=== PATIENT | female | born 1960 | race Caucasian/White ===

== ENCOUNTER 2016-12-14 18:23 | Emergency (ER) | payer OTHER ==
[~2016-12-14] VITALS: Ht 165.1 cm; Wt 65.8 kg
[~2016-12-14 18:23] MED LIST: ASPI1TAB83 PO; ATR25 PO; BENZ-88 PO; CLON0.5T3 PO; DLN100 PO; FOLI1TAB7 PO; METO-452 PO; PRIM250T9 PO; PRT/20 PO; RISP0.5T4 PO; SYMIN160 INH; TIOTCAP INH
[2016-12-14 18:27] VITALS: TEMP 36.8; Ht 165.1 cm; Wt 65.8 kg
[2016-12-14] MEDS ORDERED: RANITIDINE HCL 150 MG TAB PO STA (19:37)
[2016-12-14] MEDS ORDERED: PSEUDOEPHEDRINE HCL 30 MG TAB PO STA (19:37)
[2016-12-14] MEDS ORDERED: FLUT1INH INH (19:42)
[2016-12-14] MEDS ORDERED: SPHSL5 SL (19:42)
[2016-12-14] MEDS ORDERED: SPRIN/30 INH (19:42)
[2016-12-14] MEDS ORDERED: PSEU30TA20 PO (19:49)
[2016-12-14] MEDS ORDERED: ZNTT/150 PO (19:49)
[2016-12-14 19:54] VITALS: BP 125/70; PULSE 68; O2SAT 93
--- NOTE | 2016-12-14 21:07 | EMERGENCY ROOM VISIT NOTE ---
History Report prepared by Vy: David Sandoval Under the Supervision of: Dr. Thee Comer M.D. First contact with patient: 19:25 Chief Complaint: ILLNESS Stated Complaint: 1 MONTH ILLNESS,SORE THROAT,LEG PAINS,EAR ACHE History of Present Illness The patient is a 56 year old female who presents to the Emergency Room with complaints of an intermittent sore throat and ear ache starting a month ago. She reports her discomfort as an 8/10 in severity. The patient states that she went to the doctors and was given antibiotics, but admits that she finished them. The patient reports that her family doctor also scheduled her an appointment with an ENT doctor in December. She states that she has been experiencing a lump on her throat and burning abdominal pain. The patient states that she has also been experiencing bilateral leg pain starting yesterday , but admits her left leg only hurts today. She admits that she has had a neck ultrasound done but was not given the results and a Lyme's disease test that showed a negative result. The patient states she has a history of epilepsy, which she takes Dilantin for, and COPD. She reports that she also has a history of acid reflux which she takes Protonix for. The patient states that she had an x-ray done a couple of weeks ago in [place], which showed normal results of her lungs. The patient denies her coughing being different from baseline. Source of History: patient Onset: a month ago Position: ear, throat Symptom Intensity: 8/10 Timing: intermittent Associated Symptoms: + abdominal pain, No cough Review of Systems See HPI for pertinent positives & negatives. A total of 10 systems reviewed and were otherwise negative. Past Medical & Surgical Medical Problems: (1) COPD (chronic obstructive pulmonary disease) (2) Diverticulosis (3) Epilepsy (4) GERD (gastroesophageal reflux disease) Family History Cancer Diabetes mellitus Social History Smoking Status: Current Every Day Smoker Current/Historical Medications Scheduled Asenapine Maleate (Saphris), 5 MG SL QAM Aspirin (Aspirin), 1 TAB PO DAILY Fluticasone Furoate-Vilanterol (Breo Ellipta), 1 PUFF INH QAM Folic Acid (Folvite), 1 TAB PO DAILY Metoprolol Succinate (Toprol Xl), 1 TAB PO DAILY Pantoprazole (Protonix), 20 MG PO DAILY Phenytoin Sodium (Dilantin), 2 CAP PO QAM Phenytoin Sodium (Dilantin), 3 CAP PO HS Primidone (Mysoline), 250 MG PO BID Pseudoephedrine (Sudafed), 30-60 MG PO Q6 Ranitidine (Zantac), 150 MG PO BID Tiotropium [place] (Spiriva Handihaler), 1 CAP INH DAILY Scheduled PRN Clonazepam (Klonopin), 0.5 MG PO DAILY PRN for Anxiety Allergies Coded Allergies: No Known Allergies (Unverified , 12/14/16) Physical Exam Vital Signs Date Time Temp Pulse Resp B/P (MAP) Pulse Ox O2 Delivery O2 Flow Rate FiO2 12/14/16 19:54 68 16 125/70 93 Room Air 12/14/16 18:27 36.8 73 18 115/80 93 Room Air Physical Exam GENERAL: Patient is in no acute distress. HEENT: No throat erythema or exudate. No uvular edema. No acute trauma, normocephalic atraumatic, mucous membranes moist, no nasal congestion, no scleral icterus. Right tympanic membrane normal but left not visible due to hard wax. NECK: No stridor, no adenopathy, no meningismus, trachea is midline. LUNGS: Clear to auscultation bilaterally, no wheeze, no rhonchi, breath sounds equal. HEART: Without murmurs gallops or rubs, regular rate and rhythm. ABDOMEN: Soft, nontender, bowel sounds positive, no hernias, no peritonitis. EXTREMITIES: No cellulitis.No cyanosis or edema, full range of motion of all the joints without pain or difficulty, no signs for acute trauma. NEUROLOGIC: Oriented x 3, no acute motor or sensory deficits, no focal weakness. SKIN: No rash, no jaundice, no diaphoresis. Medical Decision & Procedures Medications Administered Medications (Trade) Dose Ordered Sig/Chris Route Start Time Stop Time Status Last Admin Dose Admin Pseudoephedrine HCl (Sudafed Tab) 60 mg NOW STAT PO 12/14/16 19:37 12/14/16 19:40 DC 12/14/16 19:56 60 MG Ranitidine HCl (zANTac TAB) 150 mg NOW STAT PO 12/14/16 19:37 12/14/16 19:40 DC 12/14/16 19:56 150 MG ED Course 1625: The patient was evaluated in room A10. A complete history and physical exam was performed. 1937: Zantac Tab 150 mg PO, Sudafed Tab 60 mg PO. 1999: I reevaluated the patient. I discussed results and discharge instructions : She verbalized understanding and agreement. The patient is ready for discharge. Medical Decision The differential diagnosis includes but is not limited to: peritonsillar abscess , pharyngitis, otitis media, cerumen impaction, dehydration, electrolyte imbalance, anemia, Lyme's disease Medication Reconciliation: I attest that I have personally reviewed the patient' s current medication list. Blood Pressure Screening: Patient was found to have normal blood pressure on screening and does not require follow-up. The patient presents with multiple complaints. The majority of her issues though deal with her ear pain and throat pain. On exam, there is a left cerumen impaction, the right TM is normal. The throat is without erythema or exudate. There is no cervical adenopathy. The patient was not febrile or toxic. The patient has been to 2 different ERs for her complaints and has had negative workups. Imaging and lab testing has been unrevealing. She has had a neck ultrasound, I suspect looking at her thyroid. She is scheduled to see ENT. She has seen her family doctor's office for her complaints as well. The patient did not want any further testing. I did agree to try some Sudafed for congestion in case this is causing some of her discomfort. I also talked about the possibility of ongoing reflux causing her throat discomfort and I have decided to add Zantac to her regimen. The patient does not want her left ear flushed for wax as she typically has this removed by ENT. The patient was encouraged to return if worsening. She was discharged home. Impression Primary Impression: Ear pain Additional Impressions: Throat pain Leg pain Scribe Attestation The scribe's documentation has been prepared under my direction and personally reviewed by me in its entirety. I confirm that the note above accurately reflects all work, treatment, procedures, and medical decision making performed by me. Departure Information Dispostion Home / Self-Care Prescriptions Pseudoephedrine (Sudafed) 30 Mg Tab 30-60 MG PO Q6 for 7 Days, #21 TAB Prov: Thee Comer M.D. 12/14/16 Ranitidine (Zantac) 150 Mg Tab 150 MG PO BID for 7 Days, #14 TAB Prov: Thee Comer M.D. 12/14/16 Referrals Shayy Ann M.D. (PCP) Forms HOME CARE DOCUMENTATION FORM, IMPORTANT VISIT INFORMATION, WORK / SCHOOL INSTRUCTIONS Patient Instructions My [facility] Additional Instructions pseudophedrine 1-2 tab every 6 hours to try and help with congestion start zantac 2x per day for try to help with possible reflux see ENT as scheduled follow with luis md exam today was normal Problem Qualifiers
== END 2016-12-14 20:00 | disposition home or self-care (01) ==
LOC: C.EDB 18:26 → C.EDA 20:00
DX: H92.09 Otalgia, unspecified ear (principal); R07.0 Pain in throat; M79.604 Pain in right leg; M79.605 Pain in left leg; K21.9 Gastro-esophageal reflux disease without esophagitis; K57.90 Diverticulosis of intestine, part unspecified, without perforation or abscess without bleeding; G40.909 Epilepsy, unspecified, not intractable, without status epilepticus; J44.9 Chronic obstructive pulmonary disease, unspecified; F17.200 Nicotine dependence, unspecified, uncomplicated; Z79.82 Long term (current) use of aspirin; Z79.899 Other long term (current) drug therapy; Z80.9 Family history of malignant neoplasm, unspecified; Z83.3 Family history of diabetes mellitus

== ENCOUNTER 2025-04-03 12:44 | Inpatient (IN) ==
--- NOTE | 2025-04-03 13:01 | Emergency Department Note ---
Impression & Plan Hypoxia, COPD (chronic obstructive pulmonary disease), Pulmonary nodule, Thrombocytopenia ED Provider Note NAME: ALEJANDRO JOHNSON AGE: 64 SEX: F : 1960 ARRIVES VIA: Ambulance INFORMANT: Patient, ED PROVIDER(S): Bry Mckoy MD CHIEF COMPLAINT: Chest pain MEDICAL DECISION MAKING: Patient presents due to concern for chest pain. EKG is nonischemic. Patient does have an oxygen requirement but may be secondary to Ativan. IV was established and blood work was obtained. Patient with a history of malignancy recently diagnosed per patient so the patient did have a CT angiography of the chest ordered. The patient was hesitant given the radiation as patient does have a PET scan on Sunday. After further discussion of the risks and benefits patient is amenable to CT imaging. Patient's blood work shows a normal white count hemoglobin with a thrombocytopenia of 42. Patient's kidney function is unremarkable. Chest x-ray is unremarkable. CT angiography of the chest does not show any PEs. Patient does have pulmonary nodules as well as lymphadenopathy is concerning for malignancy. Patient was trialed off of her oxygen but still had an oxygen requirement was 86% on room air. I did speak the [facility] hospitalist service and the patient was admitted to the medicine service. Critical Care: I have personally spent 37 minutes of critical care time in direct management of this patient. This includes bedside care, interpretation of diagnostic studies, and testing, discussion with consultants, patient, and family members, and other require inpatient management activities. This 37 minutes is in excess of all separately billable procedures. Discussion w/ other healthcare providers: Cortney Angel PA-C with Dr. Selby Prior /Outside records reviewed: None Differential diagnosis: Cardiac ischemia, aortic dissection, pulmonary embolism, pneumothorax, pneumonia, pericarditis, myocarditis, GERD, cholecystitis, pancreatitis, musculoskeletal, as well as other pathologies were considered. Diagnostics, as interpreted by me: ECG: Normal sinus rhythm, rate of 88, normal intervals, normal axis Q-wave in V2 no obvious STEMI. Cardiac monitoring: An order was placed for continuous cardiac monitoring. The monitor shows a rate of 89 with sinus rhythm. Patient was placed on pulse oximetry Medical decision rules: None Imaging studies: I informally interpreted the patient's Chest x-ray does not show obvious pneumonia or pneumothorax with formal report to follow. HPI: Patient presents due to concern for chest pains that occurred earlier today. The patient states that she has had issues with taking pain medication before. The patient had been given a fentanyl patch during her most recent admission at [facility] at which time she was told that she likely had metastatic cancer. Patient states that she had the pain beginning around 930 and that it was persistent only stopping after EMS saw her and she was given IV Ativan and Zofran. Patient denies any prior history of heart disease. She does report that she is a former smoker quitting about a year and a half ago. She also reports a history of ITP does follow with Dr. Holman. She states that she does have a PET scan on Sunday and reportedly is pending biopsy is to ascertain her lung pathology. Not currently on chemotherapy. Nursing reported the patient was hypoxic into the 80s on room air. The patient does wear CPAP at nighttime but does not wear oxygen and does not have any oxygen supplementation with the CPAP. PAST MEDICAL HISTORY: See Below PAST SURGICAL HISTORY: See Below SOCIAL HISTORY: See Below HOME MEDICATIONS: See Below ALLERGIES: See Below VITALS: See Below PHYSICAL EXAMINATION: GENERAL: NAD, non-toxic. Wearing glasses. EYE EXAM: Normal conjunctiva. PERRL, no anisocoria and EOM's grossly intact w/o pain. OROPHARYNX: Moist mucus membranes, grossly normal dentition. NECK: Trachea midline, no stridor. LUNGS: Clear to auscultation. Normal chest wall mechanics. HEART: NSR, no MRG. ABDOMEN: Abdomen soft, non-tender, no masses, no rebound or guarding. BACK: No CVA TTP. SKIN: No rashes and no bruising. UPPER EXTREMITIES: Upper extremities are grossly normal. LOWER EXTREMITIES: Grossly normal, no edema. Negative Homans' sign bilaterally. NEURO EXAM: Awake and alert, follows commands, no obvious facial asymmetry, normal speech, moves all 4 extremities. 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 follows with [facility] - last seizure 11/21/23 while inpatient at [facility] for hypokalemia and hyponatremia and hypomagnesium - believed to have had the seizure due to NPO status and unable to take her normal seizure medications. Diverticulosis COPD (chronic obstructive pulmonary disease) pt denies --- states "1 MD says I have one thing and another says something else" Thrombocytopenia Fatty liver Splenomegaly "mild" Osteoporosis Gastritis Thyroid goiter History of ITP follows with hematology in [place] Post traumatic stress disorder Anxiety and depression ADD (attention deficit disorder) Neuropathy Migraine "infrequent" Hx of cardiac murmur follows with Dr. De Jesus History of COVID-19 2020>resolved Emphysema lung pt denies Sleep apnea cpap Surgical History S/P epidural steroid injection History of bone marrow biopsy (2023) History of liver biopsy (2016) developed s/p peritoneal bleed and treated inpatient. History of anesthesia reaction o2 sats drop with anesthesia History of esophagogastroduodenoscopy (EGD) S/P thyroid biopsy wnl History of tooth extraction History of cardiac cath 2015>no stents Hx of breast surgery tumor removed x 3 (benign) S/P colonoscopy Status post tubal ligation S/P cholecystectomy Family History Mother Cancer Father Cancer Brother Diabetes Other No family history of adverse response to anesthesia Tuberculosis Social History Smoking Status: Former smoker Tobacco Type: Cigarettes Cigarettes Per Day: 20 cig daily; Second Hand Exposure: No; Do You Dip or Chew Tobacco: No; Hx Alcohol Use: No Hx Substance Use: No Preferred Language: Frisian Communication Ability: Effective 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: No Beliefs That Will Affect Care: None Current Living Situation: Spouse Feels Safe at Home: No Is there a partner from a previous relationship who is making you feel unsafe now?: No and Hesitant to Answer Assistive Devices: CPAP, Glasses and Walker Allergies Allergies Allergy/AdvReac Type Severity Reaction Status Date / Time Opioids - Morphine Analogues AdvReac Intermediate stomach Verified 04/03/25 14:19 problems Home Meds Home Medications Medication Instructions Recorded Confirmed cholecalciferol (vitamin D3) 125 5,000 unit PO QPM 01/30/19 04/03/25 mcg (5,000 unit) tablet clonazepam 0.5 mg tablet 0.5 mg PO BID PRN Anxiety 01/30/19 04/03/25 primidone 250 mg tablet 250 mg PO BID 01/30/19 04/03/25 montelukast 10 mg tablet 10 mg PO HS 09/08/20 04/03/25 fluticasone fur. 100 mcg-umeclid 1 inh inhalation QAM 01/01/23 04/03/25 62.5 mcg-vilant 25 mcg inhalat.powder (Trelegy Ellipta) primidone 250 mg tablet 125 mg PO DAILY@1300 10/30/23 04/03/25 albuterol sulfate 2.5 mg/3 mL 2.5 mg inhalation UD 11/26/24 04/03/25 (0.083 %) solution for nebulization albuterol sulfate 90 mcg/actuation 2 puff inhalation Q4H PRN sob 11/26/24 04/03/25 aerosol inhaler phenytoin sodium extended 100 mg 200 mg PO BID 02/03/25 04/03/25 capsule hydroxyzine pamoate 25 mg capsule 25 - 50 mg PO Q6H PRN Anxiety 04/03/25 04/03/25 melatonin 3 mg tablet 3 mg PO HS PRN Sleep 04/03/25 04/03/25 paroxetine HCl 10 mg tablet 10 mg PO DAILY 04/03/25 04/03/25 thiamine HCl (vitamin B1) 100 mg 100 mg PO DAILY 04/03/25 04/03/25 tablet trazodone 50 mg tablet 50 - 100 mg PO HS PRN Sleep 04/03/25 04/03/25 Previous Rx's Medication Instructions Recorded pantoprazole 40 mg tablet,delayed 40 mg PO BID #180 tabs 10/31/24 release Results & Data (ED) Vital Signs Vital Signs - 24 hr 04/03/25 12:54 04/03/25 12:57 04/03/25 12:57 Pulse Rate 88 86 86 Pulse Rate from SpO2 Sensor Respiratory Rate 16 Blood Pressure 114/77 Blood Pressure Mean 89 Blood Pressure Position Sitting Pulse Oximetry 98 97 Oxygen Delivery Method Nasal Cannula Nasal Cannula Oxygen Flow Rate 3 3 Sepsis Recent Fever Within 48 Hours No Sepsis New/Unexplained Change in Mental Status No Sepsis Action Taken by Nursing No Action Required Oxygen Flow Rate - Titration Pulse Oximetry Post Tiitration 04/03/25 12:57 04/03/25 13:30 04/03/25 15:00 Pulse Rate 84 82 Pulse Rate from SpO2 Sensor 84 Respiratory Rate 22 24 Blood Pressure 110/76 Blood Pressure Mean 95 Blood Pressure Position Pulse Oximetry 87 L 95 98 Oxygen Delivery Method Room Air Nasal Cannula Nasal Cannula Nasal Cannula Oxygen Flow Rate 0 2 2 Sepsis Recent Fever Within 48 Hours Sepsis New/Unexplained Change in Mental Status Sepsis Action Taken by Nursing Oxygen Flow Rate - Titration 3 Pulse Oximetry Post Tiitration 97 04/03/25 15:18 04/03/25 15:30 04/03/25 15:30 Pulse Rate 81 Pulse Rate from SpO2 Sensor 81 Respiratory Rate 24 Blood Pressure 131/86 131/86 Blood Pressure Mean 110 110 Blood Pressure Position Pulse Oximetry 85 L Oxygen Delivery Method Oxygen Flow Rate Sepsis Recent Fever Within 48 Hours Sepsis New/Unexplained Change in Mental Status Sepsis Action Taken by Nursing Oxygen Flow Rate - Titration Pulse Oximetry Post Tiitration 04/03/25 15:33 04/03/25 15:34 04/03/25 15:45 Pulse Rate 82 83 Pulse Rate from SpO2 Sensor 74 82 Respiratory Rate 30 H 22 Blood Pressure Blood Pressure Mean Blood Pressure Position Pulse Oximetry 86 L 92 95 Oxygen Delivery Method Room Air Nasal Cannula Nasal Cannula Oxygen Flow Rate 2 2 Sepsis Recent Fever Within 48 Hours Sepsis New/Unexplained Change in Mental Status Sepsis Action Taken by Nursing Oxygen Flow Rate - Titration Pulse Oximetry Post Tiitration 04/03/25 15:51 04/03/25 16:00 04/03/25 16:09 Pulse Rate 81 82 Pulse Rate from SpO2 Sensor 80 81 Respiratory Rate 17 17 Blood Pressure 136/89 Blood Pressure Mean 101 Blood Pressure Position Pulse Oximetry 96 96 Oxygen Delivery Method Nasal Cannula Oxygen Flow Rate 2 Sepsis Recent Fever Within 48 Hours Sepsis New/Unexplained Change in Mental Status Sepsis Action Taken by Nursing Oxygen Flow Rate - Titration Pulse Oximetry Post Tiitration Home Medications Current Medication List: was personally reviewed by pa Laboratory Data Attestation: I reviewed the patient's lab results. 04/04/25 05:53 04/04/25 05:53 Lab Results 04/03/25 Range/Units 12:55 WBC 9.27 (4.8-10.8) K/ul RBC 4.78 (4.20-5.40) M/uL Hgb 14.0 (12.0-16.0) g/dl Hct 41.5 (37.0-47.0) % MCV 86.8 (80.0-100.0) fL MCH 29.3 (25.0-34.0) pg MCHC 33.7 (32.0-36.0) g/dL RDW Std Deviation 48.1 H (36.4-46.3) fL RDW Coeff of [place] 15.3 H (11.5-14.5) % Plt Count 42 L (130-400) K/uL MPV 12.9 H (9.4-12.4) fL Immature Gran % (Auto) 2.4 % Neut % (Auto) 76.6 % Lymph % (Auto) 11.8 % [place] % (Auto) 7.0 % Eos % (Auto) 1.2 % Baso % (Auto) 1.0 % Neut # (Auto) 7.11 H (1.40-6.50) K/uL Lymph # (Auto) 1.09 L (1.20-3.40) K/uL [place] # (Auto) 0.65 H (0.11-0.59) K/uL Eos # (Auto) 0.11 (0.00-0.50) K/uL Baso # (Auto) 0.09 (0.00-0.20) K/uL Immature Gran # (Auto) 0.22 H (0.01-0.20) K/uL PT 11.0 (9.0-12.0) Seconds INR 1.0 (0.9-1.1) APTT 27 (21-31) Seconds PTT Ratio 1.0 Sodium 140 (136-145) mmol/L Potassium 3.9 (3.5-5.1) mmol/L Chloride 108 H (98-107) mmol/L Carbon Dioxide 25 (21-32) mmol/L Anion Gap 7 (3-11) BUN 6 (6-23) mg/dl Creatinine 0.37 L (0.6-1.2) mg/dl Est Cr Clr Drug Dosing 146.9 ml/min eGFR 111.16 BUN/Creatinine Ratio 16.2 (10-20) Glucose 118 H (70-99(Fasting)) mg/dl Calcium 8.7 (8.6-10.3) mg/dl Total Bilirubin 1.2 H (0.2-1.0) mg/dl AST 65 H (13-39) U/L ALT 29 (7-52) U/L Alkaline Phosphatase 188 H (34-104) U/L Troponin I High Sens 3.1 (0-14) pg/ml Total Protein 6.7 (6.0-8.3) gm/dl Albumin 3.7 (3.4-5.0) gm/dl Globulin 3.0 (2.5-4.0) gm/dl Albumin/Globulin Ratio 1.2 (0.9-2) Lipase 49 (11-82) U/L Administered Medications Docusate Sodium (Docusate Sodium 100 Mg Cap) 100 mg PO BID [facility] Stop: 05/03/25 20:59 Last Admin: 04/03/25 20:14 Dose: 100 mg Documented By: CHARLY Fentanyl (Fentanyl 12 Mcg/Hr Tdsy) 1 patch TD Q3D@2100 [facility] Stop: 04/17/25 23:44 Last Admin: 04/04/25 01:02 Dose: 1 patch Documented By: CHARLY Lidocaine (Lidocaine 5% 1 Patch) 1 patch TD QAM [facility] Stop: 05/04/25 08:59 Last Admin: 04/04/25 08:01 Dose: 1 patch Documented By: AICHA Edmond (Remove Lidoderm Patch) 1 each N/A DAILY@2100 [facility] Stop: 05/03/25 20:59 Last Admin: 04/03/25 20:17 Dose: 1 each Documented By: CHARLY Salasaneous (Fentanyl Patch Remove & Waste) 1 each N/A Q3D@2058 [facility] Stop: 05/03/25 23:44 Last Admin: 04/04/25 01:03 Dose: Not Given Documented By: CHARLY Edmond (Check Fentanyl Patch Placement) 1 each N/A QS [facility] Stop: 05/04/25 00:00 Last Admin: 04/04/25 01:03 Dose: 1 each Documented By: CHARLY Montelukast Sodium (Montelukast Sodium 10 Mg Tablet) 10 mg PO HS [facility] Stop: 05/03/25 20:59 Last Admin: 10/10/25 20:16 Dose: 10 mg Documented By: CHARLY Pantoprazole Sodium (Pantoprazole 40 Mg Tab) 40 mg PO BID AYANNA Stop: 05/03/25 20:59 Last Admin: 04/03/25 20:16 Dose: 40 mg Documented By: CHARLY Phenytoin Sodium (Phenytoin Sodium Er 100 Mg Cap) 200 mg PO BID AYANNA Stop: 05/03/25 20:59 Last Admin: 04/03/25 20:16 Dose: 200 mg Documented By: CHARLY Polyethylene Glycol (Polyethylene (Miralax) 17 Gm Pack) 17 gm PO BID AYANNA Stop: 05/03/25 20:59 Last Admin: 04/03/25 20:14 Dose: 17 gm Documented By: CHARLY Primidone (Primidone 250 Mg Tab) 250 mg PO BID AYANNA Stop: 05/03/25 20:59 Last Admin: 04/03/25 20:17 Dose: 250 mg Documented By: CHARLY Promethazine HCl (Promethazine Hcl 25 Mg Tab) 25 mg PO Q6H PRN PRN Reason: Nausea And Vomiting Stop: 05/03/25 19:05 Last Admin: 04/04/25 08:01 Dose: 25 mg Documented By: AICHA Vitamin D (Cholecalciferol 125 Mcg (5,000 Units) Tab) 125 mcg PO QPM AYANNA Stop: 05/03/25 20:59 Last Admin: 04/03/25 20:16 Dose: 125 mcg Documented By: CHARLY Discontinued Medications Albuterol (Albut/Ipratrop 3mg/0.5mg Neb 3 Ml Vial) 6 ml NEB NOW STA; Protocol Stop: 04/03/25 16:07 Last Admin: 04/03/25 16:46 Dose: 6 ml Documented By: FABIENNE Ioversol (Optiray 320 125ml) 120 ml IV ONCE ONE Stop: 04/03/25 14:19 Last Admin: 04/03/25 14:19 Dose: 120 ml Documented By: MAX Methylprednisolone (Methylprednisolone 125 Mg/2 Ml Vial) 125 mg IV NOW STA Stop: 04/03/25 16:07 Last Admin: 04/03/25 16:46 Dose: 125 mg Documented By: FABIENNE Imaging Data Radiologist's Impression: Chest X-Ray 04/03/25 12:47 XR chest 1V portable CLINICAL HISTORY: Chest pain, nonspecific COMPARISON STUDY: 11/09/2023 FINDINGS: Heart size and pulmonary vasculature are normal. No consolidation or pleural effusion. No pneumothorax. IMPRESSION: No acute findings. ACT 112: Negative or not required by law. Electronically signed by: Guillermo Bailey M.D. 04/03/2025 1:28 PM Chest X-Ray 04/03/25 12:47 XR chest 1V portable CLINICAL HISTORY: Chest pain, nonspecific COMPARISON STUDY: 11/09/2023 FINDINGS: Heart size and pulmonary vasculature are normal. No consolidation or pleural effusion. No pneumothorax. IMPRESSION: No acute findings. ACT 112: Negative or not required by law. Electronically signed by: Guillermo Bailey M.D. 04/03/2025 1:28 PM Chest CTA 04/03/25 13:11 CT ANGIOGRAM OF THE CHEST CLINICAL HISTORY: Chest pain. Evaluate for pulmonary embolus. COMPARISON STUDY: Chest CT August 27, 2023. Chest CT March 10, 2025. PET/CT January 30, 2024. Chest radiograph performed earlier today. TECHNIQUE: Following the IV administration of 120 cc of Optiray 320, CT angiogram of the chest was performed from the upper abdomen to the thoracic inlet utilizing the pulmonary embolus protocol. Images are reviewed in the axial, sagittal, and coronal planes. 3-D MIPS images are created and assessed. IV contrast was administered without complication. A dose lowering technique was utilized adhering to the principles of ALARA. CT DOSE: 557.26 mGy.cm FINDINGS: No pulmonary emboli are identified although this exam is mildly compromised by respiratory motion. The heart is mildly enlarged. There is no thoracic aortic dissection. No pericardial effusion is present. Right paratracheal lymphadenopathy has mildly increased since CT of March 10, 2025. This node measures 2.4 x 1.7 cm. Right hilar adenopathy is again noted. A right hilar node on image 137 measures 3 x 1.9 cm. There is no pneumothorax or pleural effusion. Lungs are suboptimally assessed due to respiratory motion. There is emphysema. A 2.1 cm irregular nodule within the medial aspect of the right upper lobe on image 159 has increased in size since prior chest CT. Several additional pulmonary nodules are noted, including a 9 mm right upper lobe nodule on image 189 and an 8 mm left upper lobe nodule on image 188. Posterior left fourth rib lesion is noted with an associated 2.5 cm soft tissue component. Mild splenomegaly is again noted. There is mild biliary ductal dilatation. This may be related to cholecystectomy. IMPRESSION: 1. No pulmonary emboli identified although exam mildly compromised by respiratory motion. 2. Several pulmonary nodules, the largest of which is a 2.1 cm right upper lobe nodule. These have increased in size since CT of March 10, 2025 and are likely neoplastic. The largest nodule may represent a primary lung neoplasm. Alternatively, these could represent metastases. 3. Increase in pathologic right hilar and right paratracheal lymphadenopathy. This is suggestive of metastatic disease. Lymphoma is within the differential but considered less likely. 4. Increase in size of a destructive posterior left fourth rib lesion with associated 2.5 cm soft tissue component. This is highly suggestive of metastatic disease. 5. Emphysema. ACT 112: Negative or not required by law. Electronically signed by: Valentin Lindsey M.D. 04/03/2025 2:49 PM Discharge Plan Visit Data Chief Complaint: Chest Pain Stated Complaint: CHEST PAIN ED Provider: Bry Mckoy Discharge Problem: Hypoxia, COPD (chronic obstructive pulmonary disease), Pulmonary nodule, Thrombocytopenia Patient Disposition: Admitted As Inpatient Condition: Good Discharge Instructions Interventions: ED Discharge Assessment Last Done: 04/03/25 18:19 Discharge Problem: COPD (chronic obstructive pulmonary disease) Qualifiers: COPD type: unspecified COPD Qualified Code(s): J44.9 - Chronic obstructive pulmonary disease, unspecified
[2025-04-03 13:17] LABS: Hematocrit (blood only) 41.5 % (37.0-47.0); Hemoglobin 14.0 g/dl (12.0-16.0); Immature Granulocytes # (auto) 0.22 K/uL (0.01-0.20); Immature Granulocytes % (auto) 2.4 %; Mean Corpuscular Hemoglobin 29.3 pg (25.0-34.0); Mean Corpuscular Volume 86.8 fL (80.0-100.0); Platelet Count 42 K/uL (130-400); RDW Standard Deviation 48.1 fL (36.4-46.3); Red Blood Count 4.78 M/uL (4.20-5.40); White Blood Count 9.27 K/ul (4.8-10.8)
--- NOTE | 2025-04-03 13:30 | XRay Report ---
XR chest 1V portable CLINICAL HISTORY: Chest pain, nonspecific COMPARISON STUDY: 11/09/2023 FINDINGS: Heart size and pulmonary vasculature are normal. No consolidation or pleural effusion. No p neumothorax. IMPRESSION: No acute findings. ACT 112: Negative or not required by law. Electronically signed by: Guillermo Bailey M.D. 04/03/2025 1:28 PM
[2025-04-03 13:33] LABS: Alanine Aminotransferase 29.0 U/L (7-52); Albumin Globulin Ratio 1.2 (0.9-2); Albumin Level 3.7 gm/dl (3.4-5.0); Alkaline Phosphatase 188.0 U/L (34-104); Anion Gap 7.0 (3-11); Bilirubin,Total 1.2 mg/dl (0.2-1.0); Blood Urea Nitrogen 6.0 mg/dl (6-23); Calcium 8.7 mg/dl (8.6-10.3); Carbon Dioxide 25.0 mmol/L (21-32); Chloride 108.0 mmol/L (98-107); Creatinine Clr Calc Pharmacy 146.9 ml/min; Globulin 3.0 gm/dl (2.5-4.0); Glucose 118.0 mg/dl (70-99(Fasting)); Lipase 49.0 U/L (11-82); Potassium 3.9 mmol/L (3.5-5.1); Sodium 140.0 mmol/L (136-145); Total Protein 6.7 gm/dl (6.0-8.3)
[2025-04-03 14:00] LABS: INR 1.0 (0.9-1.1); Partial Thromboplastin Time 27 Seconds (21-31); Prothrombin Time 11.0 Seconds (9.0-12.0)
[2025-04-03] MEDS: OPTIRAY 320 125ml IV ONE (14:19)
--- NOTE | 2025-04-03 14:51 | CT Scan Report ---
CT ANGIOGRAM OF THE CHEST CLINICAL HISTORY: Chest pain. Evaluate for pulmonary embolus. COMPARISON STUDY: Chest CT August 27, 2023. Chest CT March 10, 2025. PET/CT January 30, 2024. Chest radiograph performed earlier today. TECHNIQUE: Following the IV administration of 120 cc of Optiray 320, CT angiogram of the chest was pe rformed from the upper abdomen to the thoracic inlet utilizing the pulmonary embolus protocol. Images are reviewed in the axial, sagittal, and coronal planes. 3-D MIPS images are created and assessed. I V contrast was administered without complication. A dose lowering technique was utilized adhering to the principles of ALARA. CT DOSE: 557.26 mGy.cm FINDINGS: No pulmonary emboli are identified although this exam is mildly compromised by respiratory motion. The heart is mildly enlarged. There is no thoracic aortic dissection. No pericardial effusion is present. Right paratracheal lymphadenopathy has mildly increased since CT of March 10, 2025. This node measures 2.4 x 1.7 cm. Right hilar adenopathy is again noted. A right hilar node on image 1 37 measures 3 x 1.9 cm. There is no pneumothorax or pleural effusion. Lungs are suboptimally assessed due to respiratory motion. There is emphysema. A 2.1 cm irregular nodule within the medial aspect of the right upper lobe on image 159 has increased in size since prior chest CT. Several additional pul monary nodules are noted, including a 9 mm right upper lobe nodule on image 189 and an 8 mm left uppe r lobe nodule on image 188. Posterior left fourth rib lesion is noted with an associated 2.5 cm soft tissue component. Mild splenomegaly is again noted. There is mild biliary ductal dilatation. This may be related to cholecystectomy. IMPRESSION: 1. No pulmonary emboli identified although exam mildly compromised by respiratory motion. 2. Several pulmonary nodules, the largest of which is a 2.1 cm right upper lobe nodule. These have in creased in size since CT of March 10, 2025 and are likely neoplastic. The largest nodule may repr esent a primary lung neoplasm. Alternatively, these could represent metastases. 3. Increase in pathologic right hilar and right paratracheal lymphadenopathy. This is suggestive of m etastatic disease. Lymphoma is within the differential but considered less likely. 4. Increase in size of a destructive posterior left fourth rib lesion with associated 2.5 cm soft tis [place] component. This is highly suggestive of metastatic disease. 5. Emphysema. ACT 112: Negative or not required by law. Electronically signed by: Valentin Lindsey M.D. 04/03/2025 2:49 PM
[2025-04-03] MEDS: ALBUT/IPRATROP 3MG/0.5MG NEB 3 ML VIAL NEB STA (16:46)
--- NOTE | 2025-04-03 16:49 | History & Physical Report ---
Date of Service April 03, 2025 Assessment & Plan (1) Hypoxia: (2) Thrombocytopenia: (3) Pulmonary nodule: (4) Constipation: (5) Chronic pain: (6) Epilepsy: Plan This is a 64 year old female with past medical history of COPD, GERD, pulmonary nodules who presented to the ED for chest pain on 04/03/2025. While in the ED, her CXR was normal. Her Chest CTA did reveal pulmonary nodules that are known and was negative for PE. Her CBC was without leukocytosis or anemia. Her platelet count is decreased at 42,000. Her PT/INR is WNL. BMP reveals stable electrolytes. Her total bilirubin is mildly elevated at 1.2, AST mildly elevated at 65, and alk phos mildly elevated at 188. Troponin was negative. Lipase WNL. #Hypoxia|Chest pain|Pulmonary Nodules Was recently on fentanyl patch prescribed at [facility] for 72 hours. After removing, took a dose of Dilaudid & experienced chest pain which was relieved with Zofran & Ativan that was given by EMS. Per pt, has a hx of chest pain secondary to opioids. Suspect these symptoms are related to opioid use along with likely metastatic lung cancer. Chest CTA: no PE. Several pulm nodules, largest of which is 2.1cm right upper lobe nodule. increased in size since 02/2025 and are likely neoplastic. Largest nodule may represent primary lung neoplasm vs metastases. increase in pathologic right hilar & right paratracheal LAD. increase in size of destructive posterior left 4th rib lesion w/ associated 2.5cm soft tissue component. emphysema. CXR negative; Troponin negative. EKG without ischemic signs; CP resolved after Ativan. Physical exam revealed clear lung sounds & no wheezing to suggest a COPD exacer bation. Solu Medrol 125mg IV given in ED, hold further steroids on admission given low concern for exacerbation. Continue oxygen as needed to maintain O2 > 90% Echocardiogram ordered Resume Trelegy as patient has been noncompliant outpatient. Continue Montelukast Duonebs q6 hours as needed for shortness of breath. PET scan set for 04/06 & upcoming lung bx. Will likely require 2 step prior to dc. #Chronic pain Thought to be secondary to possible metastatic cancer, bx pending to confirm this. Was tolerating fentanyl patch well at [facility] although changed to PO Dilaudid by Dr. Holman this past week. Obtain records from [facility] to see dosage of Fentanyl patch - may be option for her since she did not have adverse effects to this. PDMP reviewed & no Fentanyl patch prescribed on discharge Despite being hypoxic, will have to control patients pain while here --> can trial low dose IV Morphine to ensure she can tolerate it & titrate up as needed with transition to Fentanyl patch on discharge. Lidocaine patch for left rib area Upon discharge, patient should establish with palliative care. #Thrombocytopenia Plt 42,000 on admission. Follows w/ Dr. Holman outpatient. Most recent note available to view from 10/2024 --> did not tolerate high dose dexamethasone, was offered IVIG/rituximab/TPO agonist & elected for observation since plt > 30k Monitor, consider heme consult if plt drops below 30,000 #Constipation/Nausea Likely opioid induced; nausea likely secondary to constipation Miralax BID + Stool softener BID --> adjust as necessary She does not prefer Zofran, Trial Phenergan PO every 6 hours as needed for N/V. Continue PPI BID. #Epilepsy - stable, continue primidone & phenytoin #Mental health - Continue Paroxetine. Hydroxyzine & clonazepam prn DVT prophylaxis: SCD's. Hold chemical in setting of thrombocytopenia. If plt count improves consider chemical given high risk Code: Full Case was discussed with Dr. Selby at time of admission. History of Present Illness Primary Care Provider: Blaise Alejandro This is a 64 year old female with past medical history of COPD, GERD, pulmonary nodules who presented to the ED for chest pain on 04/03/2025. Kiki was seen and examined this afternoon. She reports that she was recently in [facility] secondary to pain related to her undiagnosed cancer. She was given a Fentanyl patch and was tolerating it well. She then saw Dr. Holman in follow up yesterday who had recommended PO Dilaudid for pain control. She states that this morning she took her Fentanyl patch off as it had been on for 72 hours and took a dose of Dilaudid. Following taking the pain medication she started to experience an abrupt onset of chest pain. She states that this has happened with opioids in the past. She is unsure why she was taken off the Fentanyl patch as she was tolerating it well. She denies any shortness of breath. States she has wheezing in the morning when she wakes up but denies any additional wheezing. She states she has been forgetting to take her Trelegy recently. She reports being constipated and used Miralax & a stool softener with minimal relief. She is passing gas. She states she feels nauseous after eating but denies vomiting. She denies any urinary symptoms. She states she has a PET scan ordered for this coming Sunday and an upcoming lung biopsy as well. She tel ls me she does not prefer Zofran for nausea or vomiting but does not know what other options there are. While in the ED, her CXR was normal. Her Chest CTA did reveal pulmonary nodules that are known and was negative for PE. Her CBC was without leukocytosis or anemia. Her platelet count is decreased at 42,000. Her PT/INR is WNL. BMP reveals stable electrolytes. Her total bilirubin is mildly elevated at 1.2, AST mildly elevated at 65, and alk phos mildly elevated at 188. Troponin was negative. Lipase WNL. Code discussion did take place with the patient and she does confirm that she is a full code. Allergies Allergy/AdvReac Type Severity Reaction Status Date / Time Opioids - Morphine Analogues AdvReac Intermediate stomach Verified 04/03/25 14:19 problems Home Medications Medication Instructions Recorded Confirmed Type cholecalciferol (vitamin D3) 125 5,000 unit PO QPM 01/30/19 04/03/25 History mcg (5,000 unit) tablet clonazepam 0.5 mg tablet 0.5 mg PO BID PRN Anxiety 01/30/19 04/03/25 History primidone 250 mg tablet 250 mg PO BID 01/30/19 04/03/25 History montelukast 10 mg tablet 10 mg PO HS 09/08/20 04/03/25 History fluticasone fur. 100 mcg-umeclid 1 inh inhalation QAM 01/01/23 04/03/25 History 62.5 mcg-vilant 25 mcg inhalat.powder (Trelegy Ellipta) primidone 250 mg tablet 125 mg PO DAILY@1300 10/30/23 04/03/25 History pantoprazole 40 mg tablet,delayed 40 mg PO BID #180 tabs 10/31/24 04/03/25 Rx release albuterol sulfate 2.5 mg/3 mL 2.5 mg inhalation UD 11/26/24 04/03/25 History (0.083 %) solution for nebulization albuterol sulfate 90 mcg/actuation 2 puff inhalation Q4H PRN sob 11/26/2404/03 History aerosol inhaler phenytoin sodium extended 100 mg 200 mg PO BID 02/03/25 04/03/25 History capsule hydroxyzine pamoate 25 mg capsule 25 - 50 mg PO Q6H PRN Anxiety 04/03/2503/25 History melatonin 3 mg tablet 3 mg PO HS PRN Sleep 04/03/25 04/03/25 History paroxetine HCl 10 mg tablet 10 mg PO DAILY 04/03/25 04/03/25 History thiamine HCl (vitamin B1) 100 mg 100 mg PO DAILY 04/03/25 04/03/25 History tablet trazodone 50 mg tablet 50 - 100 mg PO HS PRN Sleep 04/03/25 04/03/25 History Past Med/Surg History Problem List (Updated 04/03/25 @ 17:03 by Cortney Gaspar PA-C) Chronic pain Constipation Pulmonary nodule Hypoxia Chronic cough Polyp of duodenum B12 deficiency (Chronic) Fatigue (Chronic) Headache (Chronic) Neuralgia (Chronic) Throat pain (Acute) Leg pain (Acute) Ear pain (Acute) Epilepsy (Chronic) 2017 last event>[place] [facility] Diverticulosis GERD (gastroesophageal reflux disease) (Chronic) COPD (chronic obstructive pulmonary disease) (Chronic) Medical History Dysphagia Chronic back pain GERD (gastroesophageal reflux disease) 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 follows with [facility] - last seizure 11/21/23 while inpatient at [facility] for hypokalemia and hyponatremia and hypomagnesium - believed to have had the seizure due to NPO status and unable to take her normal seizure medications. Diverticulosis COPD (chronic obstructive pulmonary disease) pt denies --- states "1 MD says I have one thing and another says something else" Thrombocytopenia Fatty liver Splenomegaly "mild" Osteoporosis Gastritis Thyroid goiter History of ITP follows with hematology in [place] Post traumatic stress disorder Anxiety and depression ADD (attention deficit disorder) Neuropathy Migraine "infrequent" Hx of cardiac murmur follows with Dr. De Jesus History of COVID-19 2020>resolved Emphysema lung pt denies Sleep apnea cpap Surgical History S/P epidural steroid injection History of bone marrow biopsy (2023) History of liver biopsy (2016) developed s/p peritoneal bleed and treated inpatient. History of anesthesia reaction o2 sats drop with anesthesia History of esophagogastroduodenoscopy (EGD) S/P thyroid biopsy wnl History of tooth extraction History of cardiac cath 2016>no stents Hx of breast surgery tumor removed x 3 (benign) S/P colonoscopy Status post tubal ligation S/P cholecystectomy Family History Mother Cancer Father Cancer Brother Diabetes Other No family history of adverse response to anesthesia Tuberculosis Social History Smoking Status: Former smoker Tobacco Type: Cigarettes Cigarettes Per Day: 20 cig daily; Second Hand Exposure: No; Do You Dip or Chew Tobacco: No; Hx Alcohol Use: No Hx Substance Use: No Preferred Language: British Communication Ability: Effective Tax Advisor Required: No Beliefs That Will Affect Care: None Current Living Situation: Spouse Feels Safe at Home: No Is there a partner from a previous relationship who is making you feel unsafe now?: No and Hesitant to Answer Safety Concerns: Afraid for Others in Home Assistive Devices: CPAP, Glasses and Walker Assistive Devices Comment: raised toilet seat, shower chair Physical Exam Physical Exam: General: NAD, VS: BP 110/76; P82; R24 Resp: normal respiratory effort, lungs clear to auscultation CV: RRR, no murmur Abd: normal bowel sounds, non tender Extremities: Moves all extremities, no edema Neuro: A&O x3, Skin: intact, no lesions noted Results & Data Results & Data Vital Signs (Past 12 Hours) Vital Signs Pulse Resp BP Pulse Ox O2 Del Method O2 Flow Rate 04/03/25 15:00 82 24 110/76 98 Nasal Cannula 2 04/03/25 13:30 84 22 95 Nasal Cannula 2 04/03/25 12:57 87 L Room Air, Nasal Cannula 0 04/03/25 12:57 86 97 Nasal Cannula 3 04/03/25 12:57 86 16 114/77 98 Nasal Cannula 3 04/03/25 12:54 88 Code Status & VTE Plan VTE Prophylaxis Plan VTE Prophylaxis will be ordered: Yes Supervising Physician Co-Signing Physician Notes Patient seen and examined, chart reviewed, case discussed with Cortney Gaspar PA-C and I agree with the assessment and plan as above except as otherwise noted Labs and images reviewed Seen at the bedside. On oxygen but doing well without shortness of breath. She is suspicious that this is due to a necrotic reaction which is very similar to what she has had in the past. She is not wheezing. She does have chronic pain treated well with the fentanyl patch, she reports that she did not do well with other narcotics in the past and thought she would do okay with oral hydromorphone however her reaction feels identical to when she has used other oral narcotic options. Additionally while fentanyl patch was removed can still have some delayed transdermal absorption Which she may have been sensitive to. She does not show signs of PE, no wheezing to suggest a COPD exacerbation. Does not have signs of fluid overload. Does have pulmonary nodules likely malignant with bony mets with pain pending biopsy and further follow-up. Agree with resuming fentanyl patch which she had been stable on. Would avoid hydromorphone/morphine given her history of reactions to this in the past. Otherwise agree with above. PG Care Time/CCT Total # of Minutes Spent Total Time Spent with Patient: Total time spent is greater than 50% in coordination of care (as documented) at patient's floor/unit and/or counseling patient: Coding Level of Care Code 58469 INT INP/OBS CARE 3/75MIN Diagnoses Hypoxia R09.02 Thrombocytopenia D69.6 Pulmonary nodule R91.1 Constipation K59.00 Chronic pain G89.29 Epilepsy G40.909
[2025-04-03] MEDS ORDERED: ALBUT/IPRATROP 3MG/0.5MG NEB 3 ML VIAL NEB PRN (19:06)
[2025-04-03] MEDS ORDERED: MoRPHine SULFATE 2 MG/ML CARP IV PRN (19:06)
[2025-04-03] MEDS: DOCUSATE SODIUM 100 MG CAP PO SCH (20:14)
[2025-04-03] MEDS: POLYETHYLENE (MIRALAX) 17 GM PACK PO SCH (20:14)
[2025-04-03] MEDS: MONTELUKAST SODIUM 10 MG TABLET PO SCH (20:16)
[2025-04-03] MEDS: PHENYTOIN SODIUM ER 100 MG CAP PO SCH (20:16)
[2025-04-03] MEDS: CHOLECALCIFEROL 125 MCG (5,000 UNITS) TAB PO SCH (20:16)
[2025-04-03] MEDS: PRIMIDONE 250 MG TAB PO SCH (20:17)
[2025-04-03] MEDS: REMOVE LIDODERM PATCH SCH (20:17)
[2025-04-04 07:04] LABS: Hematocrit (blood only) 38.9 % (37.0-47.0); Hemoglobin 12.7 g/dl (12.0-16.0); Mean Corpuscular Hemoglobin 28.2 pg (25.0-34.0); Mean Corpuscular Volume 86.3 fL (80.0-100.0); Platelet Count 36 K/uL (130-400); RDW Standard Deviation 48.4 fL (36.4-46.3); Red Blood Count 4.51 M/uL (4.20-5.40); White Blood Count 6.39 K/ul (4.8-10.8)
[2025-04-04 07:10] LABS: Alanine Aminotransferase 32.0 U/L (7-52); Albumin Globulin Ratio 1.5 (0.9-2); Albumin Level 3.7 gm/dl (3.4-5.0); Alkaline Phosphatase 162.0 U/L (34-104); Anion Gap 5.0 (3-11); Bilirubin,Total 0.4 mg/dl (0.2-1.0); Blood Urea Nitrogen 9.0 mg/dl (6-23); Calcium 8.8 mg/dl (8.6-10.3); Carbon Dioxide 28.0 mmol/L (21-32); Chloride 107.0 mmol/L (98-107); Creatinine Clr Calc Pharmacy 85.9 ml/min; Globulin 2.5 gm/dl (2.5-4.0); Glucose 100.0 mg/dl (70-99(Fasting)); Potassium 3.9 mmol/L (3.5-5.1); Sodium 140.0 mmol/L (136-145); Total Protein 6.2 gm/dl (6.0-8.3)
[2025-04-04] MEDS ORDERED: INFLUENZA VACC TS2025-26(65y+)/PF (IIV3) 0.5mL Syr IM ONE (07:41)
[2025-04-04] MEDS: LIDOCAINE 5% 1 PATCH TD SCH (08:01)
[2025-04-04] MEDS: PROMETHAZINE HCL 25 MG TAB PO PRN (08:01)
[2025-04-04] MEDS ORDERED: NON-FORMULARY MEDICATION (Fluticasone-Umeclidin-Vilanter [Trelegy Ellipta] 100-62.5-25 mcg INH SCH (09:00)
[2025-04-04] MEDS: THIAMINE HCL 100 MG TAB PO SCH (09:01)
[2025-04-04] MEDS: UMECLIDINIUM/VILANTEROL 62.5/25MCG 7 PUFFS/INHALER INH SCH (09:07)
[2025-04-04] MEDS: FLUTICASONE FUROATE 100MCG 14 PUFFS/INHALER INH SCH (09:07)
--- NOTE | 2025-04-04 12:27 | Hospitalist Progress Note ---
"Date of Service April 04, 2025 Assessment & Plan (1) Hypoxia: (2) Thrombocytopenia: (3) Pulmonary nodule: (4) Constipation: (5) Chronic pain: (6) Epilepsy: Plan This is a 64 year old female with past medical history of COPD, GERD, pulmonary nodules who presented to the ED for chest pain on 04/03/2025. Workup in the ED showed an unremarkable CXR. Chest CTA was negative for PE but did reveal known pulmonary nodules that are suspicious for malignancy. She was recently seen at [facility] due to pain related to her likely undiagnosed cancer. She was given a fentanyl patch which controlled her pain well. She saw Dr. Holman the day prior to admission who prescribed oral Dilaudid for pain control. After taking this, she experienced abrupt onset of chest pain. This has happened with opioids in the past. She also feels constipated and intermittently nauseous. She has a PET scan on Friday 04/06 and an upcoming lung biopsy as well. #Hypoxia | Chest pain | Pulmonary Nodules - high suspicion for underlying undiagnosed lung cancer - Chest pain following oral Dilaudid resolved with Zofran and Ativan that was given by EMS en route - Was given 1 dose of IV Solu-Medrol in the ED. Further steroids deferred as no signs of acute COPD exacerbation. Suspect hypoxia is related to underlying undiagnosed lung cancer - Troponin negative x 2. EKG without ischemic changes. Low suspicion for cardiac etiology - Echocardiogram completed, report pending - Continue supplemental O2 as needed to maintain O2 sat >90% - DuoNeb Q6h PRN dyspnea/wheezing - Continue Trelegy, montelukast - PET scan scheduled on 04/06 & has upcoming lung biopsy - Will likely require 2 step prior to discharge #Chronic pain - Thought to be secondary to possible metastatic cancer, biopsy needed to confirm this - Was tolerating fentanyl patch well at [facility] although changed to PO Dilaudid by Dr. 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 Holman outpatient - Most recent note available to view from 10/2024 --> did not tolerate high dose dexamethasone, was offered IVIG/rituximab/TPO agonist & elected for observation since plt > 30k - Trend CBC daily - consider heme consult if plt drops below 30,000 #Constipation | Nausea - constipation likely opioid induced; nausea likely secondary to constipation - Continue MiraLAX BID, Colace BID. Added Senna daily as well. Declines suppository at this time - Continue phenergan PRN nausea. She prefers to not use Zofran - Continue PPI BID #Epilepsy - stable, continue primidone & phenytoin #Mental health - Continue Paroxetine. Hydroxyzine & clonazepam prn DVT prophylaxis: SCD's. Hold chemical in setting of thrombocytopenia. If plt count improves consider chemical given high risk Dispo: Continued inpatient stay while working on pain control and bowel regimen Increased bowel regimen Admission and Anticipated Discharge Date Admission Date: April 03, 2025 Supervising Physician Co-Signing Physician Notes PA Supervision Note: I did not personally see or examine the patient today, but I verified all davis points of KIESHA Kelly's assessment and plan with the following exceptions/additions: None Subjective Patient seen and evaluated at bedside. She reports ongoing left-sided rib pain. She had a fentanyl patch placed overnight. When she had the fentanyl patch in the past, it took some time to kick in so she is anticipating improved pain control by tonight. She has not had a BM yet. We discussed multiple options for escalating her bowel regimen; she elected for another dose of MiraLAX and starting senna as well. She denies chest pain. She states that her rib pain radiates to her left chest wall sometimes but denies that sensation currently. Phenergan is well-controlling her nausea. We discussed obtaining a 2-step eventually as she will likely need supplemental O2 during the daytime. No additional complaints or concerns at this time. Telemetry reviewed: NSR 90s. Physical Exam Physical Exam: General: No acute distress, nondiaphoretic, well-developed, well-nourished. Skin: Warm, dry. No rashes or peripheral edema noted. Cardiac: Regular rate and rhythm without murmurs gallops or rubs. Pulm: Clear to auscultation bilaterally without wheezes, rales or rhonchi. Normal respiratory effort. 95% on 2 L NC. Abdominal: Soft, nontender, nondistended. Bowel sounds present. Neuro: A&O x3. No focal neurological deficits. Results & Data Results & Data Vital Signs (Past 12 Hours) Vital Signs Temp Pulse Pulse Resp BP Pulse Ox O2 Del Method 04/04/25 07:32 97.5 F L 82 16 102/62 91 Room Air 04/04/25 06:31 80 04/04/25 03:21 97.5 F L 78 18 110/70 95 Nasal Cannula 04/04/25 00:53 85 O2 Flow Rate 04/04/25 07:32 04/04/25 06:31 04/04/25 03:21 2 04/04/25 00:53 Laboratory Results Reviewed CBC Reviewed CMP PG Care Time/CCT Total # of Minutes Spent Total Time Spent with Patient: Total time spent is greater than 50% in coordination of care (as documented) at patient's floor/unit and/or counseling patient: Coding Level of Care Code 28038 SUB INP/OBS CARE 2/35MIN Diagnoses Hypoxia R09.02 Thrombocytopenia D69.6 Pulmonary nodule R91.1 Constipation K59.00 Chronic pain G89.29 Epilepsy G40.909"
[2025-04-04] MEDS: SENNA 8.6 MG TAB PO SCH (12:51)
[2025-04-04] MEDS: POLYETHYLENE (MIRALAX) 17 GM PACK PO ONE (12:51)
[2025-04-04] MEDS: PRIMIDONE 250 MG TAB PO SCH (14:18)
[2025-04-04] MEDS: ACETAMINOPHEN 325 MG TAB PO PRN (19:48)
--- NOTE | 2025-04-05 06:30 | Electrocardiogram Report ---
Test Reason : Blood Pressure : */* mmHG Vent. Rate : 88 BPM Atrial Rate : 88 BPM P-R Int : 168 ms QRS Dur : 68 ms QT Int : 374 ms P-R-T Axes : 63 26 50 degrees QTcB Int : 452 ms Normal sinus rhythm Septal infarct (cited on or before 01-Jun-2022) Abnormal ECG When compared with ECG of 30-Oct-2023 12:24, No significant change was found Confirmed by César Douglas ([id number]) on 04/05/2025 6:30:22 AM Referred By: Confirmed By: César Douglas
[2025-04-05 07:53] LABS: Hematocrit (blood only) 39.8 % (37.0-47.0); Hemoglobin 13.2 g/dl (12.0-16.0); Mean Corpuscular Hemoglobin 28.8 pg (25.0-34.0); Mean Corpuscular Volume 86.7 fL (80.0-100.0); Platelet Count 41 K/uL (130-400); RDW Standard Deviation 48.2 fL (36.4-46.3); Red Blood Count 4.59 M/uL (4.20-5.40); White Blood Count 6.86 K/ul (4.8-10.8)
[2025-04-05 08:22] LABS: Alanine Aminotransferase 20.0 U/L (7-52); Albumin Globulin Ratio 1.5 (0.9-2); Albumin Level 3.8 gm/dl (3.4-5.0); Alkaline Phosphatase 161.0 U/L (34-104); Anion Gap 7.0 (3-11); Bilirubin,Total 0.5 mg/dl (0.2-1.0); Blood Urea Nitrogen 11.0 mg/dl (6-23); Calcium 8.8 mg/dl (8.6-10.3); Carbon Dioxide 27.0 mmol/L (21-32); Chloride 107.0 mmol/L (98-107); Creatinine Clr Calc Pharmacy 99.6 ml/min; Globulin 2.5 gm/dl (2.5-4.0); Glucose 102.0 mg/dl (70-99(Fasting)); Potassium 4.1 mmol/L (3.5-5.1); Sodium 141.0 mmol/L (136-145); Total Protein 6.3 gm/dl (6.0-8.3)
[2025-04-05] MEDS: clonazePAM 0.5 MG TAB PO PRN (11:14)
[2025-04-05] MEDS: GADOBUTROL 30ML VIAL IV ONE (11:33)
--- NOTE | 2025-04-05 12:16 | Magnetic Resonance Report ---
HISTORY: Concern for malignancy or metastatic disease. TECHNIQUE: MRI of the brain with and without IV contrast. 6.5 mL of Gadavist IV contrast was administered. COMPARISON: Head CT dated 01/31/2025. FINDINGS: The sella is not expanded. The cerebellar tonsils do not extend below the foramen magnum. No areas of restricted diffusion to suggest acute infarct.Patchy T2/FLAIR hyperintensities involving the periventricular and subcortical white matter are nonspecific, but commonly attributed to chronic microvascular ischemic changes.Mild diffuse volume loss.No areas of susceptibility artifact to suggest intracranial hemorrhage.No abnormal intracranial enhancement. Ventricular caliber is appropriate. The fourth ventricle is midline. The basal cisterns are patent. The major intracranial flow voids are maintained. Paranasal sinuses and mastoid air cells are well aerated. The soft tissues of the skull base and scalp are unremarkable. IMPRESSION: 1. No acute intracranial findings. No evidence of acute infarct, intracranial hemorrhage, or enhancing intracranial mass. 2. Mild volume loss and chronic microvascular ischemic changes. Electronically signed by Jay Solitario 04-05-2025 12:16 PM
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
--- NOTE | 2025-04-05 13:46 | XCELERA ---
[id number]
[2025-04-05] MEDS ORDERED: Nursing to Pharmacy Communication SCH (17:45)
[2025-04-06 07:57] LABS: Hematocrit (blood only) 40.5 % (37.0-47.0); Hemoglobin 12.9 g/dl (12.0-16.0); Mean Corpuscular Hemoglobin 27.7 pg (25.0-34.0); Mean Corpuscular Volume 87.1 fL (80.0-100.0); Platelet Count 32 K/uL (130-400); RDW Standard Deviation 48.9 fL (36.4-46.3); Red Blood Count 4.65 M/uL (4.20-5.40); White Blood Count 7.43 K/ul (4.8-10.8)
[2025-04-06 08:14] LABS: Anion Gap 7.0 (3-11); Blood Urea Nitrogen 12.0 mg/dl (6-23); Calcium 8.8 mg/dl (8.6-10.3); Carbon Dioxide 27.0 mmol/L (21-32); Chloride 105.0 mmol/L (98-107); Creatinine Clr Calc Pharmacy 85.9 ml/min; Glucose 97.0 mg/dl (70-99(Fasting)); Potassium 4.0 mmol/L (3.5-5.1); Sodium 139.0 mmol/L (136-145)
[2025-04-06] MEDS: ACETAMINOPHEN 500 MG TAB PO SCH (14:08)
[2025-04-06] MEDS: dexAMETHasone 4 MG in SYRINGE 0 ML IV SCH (14:12)
[2025-04-06] MEDS: GABAPENTIN 100 MG CAP PO SCH (14:43)
--- NOTE | 2025-04-06 14:47 | XRay Report ---
XR chest 2V PA/lateral CLINICAL HISTORY: dyspnea, hypoxia, suspected lung ca COMPARISON STUDY: 04/03/2025 FINDINGS: Heart size and pulmonary vasculature are normal. Stable hyperexpanded lungs. No consolidati on or pleural effusion. The pulmonary nodules are better seen on the recent CT scan. No pneumothorax. IMPRESSION: Emphysema with no pneumonia seen. ACT 112: Negative or not required by law. Electronically signed by: Guillermo Bailey M.D. 04/06/2025 2:46 PM
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
--- NOTE | 2025-04-06 17:21 | XRay Report ---
History: Pain Comparison: None Findings: There is no acute fracture or dislocation. Alignment is anatomic. Joint spaces are well maintained. There is no joint effusion or significant soft tissue swelling. Impression: No acute bony abnormality Electronically signed by Roc Meneses 04-06-2025 5:21 PM
[2025-04-06] MEDS ORDERED: SODIUM CHLORIDE 0.9% 100 ML IV PRN (18:08)
[2025-04-06] MEDS: MELATONIN 3 MG TAB PO PRN (22:06)
[2025-04-07 07:14] LABS: Anion Gap 7.0 (3-11); Blood Urea Nitrogen 16.0 mg/dl (6-23); Calcium 8.9 mg/dl (8.6-10.3); Carbon Dioxide 27.0 mmol/L (21-32); Chloride 106.0 mmol/L (98-107); Creatinine Clr Calc Pharmacy 88.9 ml/min; Glucose 94.0 mg/dl (70-99(Fasting)); Magnesium 1.9 mg/dl (1.7-2.4); Potassium 4.1 mmol/L (3.5-5.1); Sodium 140.0 mmol/L (136-145)
[2025-04-07 07:23] LABS: Hematocrit (blood only) 39.4 % (37.0-47.0); Hemoglobin 12.6 g/dl (12.0-16.0); Mean Corpuscular Hemoglobin 27.9 pg (25.0-34.0); Mean Corpuscular Volume 87.2 fL (80.0-100.0); Platelet Count 27 K/uL (130-400); RDW Standard Deviation 48.2 fL (36.4-46.3); Red Blood Count 4.52 M/uL (4.20-5.40); White Blood Count 6.86 K/ul (4.8-10.8)
[2025-04-07 07:28] LABS: Thyroid Stimulating Hormone 0.401 uIu/ml (0.300-4.500)
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
[2025-04-07] MEDS ORDERED: SODIUM CHLORIDE 0.9% 100 ML IV PRN (21:00)
[2025-04-07] MEDS: LORazepam 0.5 MG TAB PO PRN (22:09)
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
[2025-04-08 11:29] LABS: Hematocrit (blood only) 35.3 % (37.0-47.0); Hemoglobin 11.6 g/dl (12.0-16.0); Mean Corpuscular Hemoglobin 28.1 pg (25.0-34.0); Mean Corpuscular Volume 85.5 fL (80.0-100.0); Platelet Count 37 K/uL (130-400); RDW Standard Deviation 47.3 fL (36.4-46.3); Red Blood Count 4.13 M/uL (4.20-5.40); White Blood Count 7.73 K/ul (4.8-10.8)
[2025-04-08] MEDS ORDERED: SODIUM CHLORIDE 0.9% 100 ML IV PRN (11:59)
[2025-04-08] MEDS: methylPREDNISolone 1,000 MG in NSS 250 ML IV STA (13:16)
--- NOTE | 2025-04-08 15:13 | CT Scan Report ---
CT guided left rib bone lesion core biopsy INDICATION: Left rib expansile lesion; history of lymphoma PROCEDURE: Procedure and risks were explained. Informed consent was obtained. A final timeout was com pleted. The patient was placed prone on the CT exam table. The left posterior thorax was prepped and draped in sterile fashion. 1% lidocaine was utilized for skin anesthesia. Utilizing CT guidance, a 19-gauge coaxial needle was advanced into the left rib bone lesion. A 20-gau ge core biopsy needle was advanced and 3 cores were obtained and given to the lab. The needle was rem cesilia and Band-Aid applied. The patient tolerated the procedure well. Vital signs will be monitored po stprocedure. IMPRESSION: Left rib bone lesion core biopsy as above. Performed, dictated, and signed by Momo Galvin PA-C; to be co-signed by Dr. Guillermo Bailey. Electronically signed by: Guillermo Bailey M.D. 04/08/2025 3:19 PM
[2025-04-08] MEDS: SODIUM CHLORIDE 0.9% 500 ML IV SCH (15:30)
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
[2025-04-09] MEDS ORDERED: PHENYLEPHRINE 0.25% SUPP PR PRN (13:25)
[2025-04-09] MEDS ORDERED: HYDROCORTISONE HC 2.5% CRM 30GM TUBE EXT PRN (13:26)
[2025-04-10 06:01] LABS: Hematocrit (blood only) 38.2 % (37.0-47.0); Hemoglobin 12.3 g/dl (12.0-16.0); Mean Corpuscular Hemoglobin 28.1 pg (25.0-34.0); Mean Corpuscular Volume 87.4 fL (80.0-100.0); Platelet Count 50 K/uL (130-400); RDW Standard Deviation 49.2 fL (36.4-46.3); Red Blood Count 4.37 M/uL (4.20-5.40); White Blood Count 7.95 K/ul (4.8-10.8)
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
--- NOTE | 2025-04-10 15:14 | XRay Report ---
XR chest 2V PA/lateral, XR ribs LT min 2V CLINICAL HISTORY: chest pain, post bone biopsy, thrombocytopenia COMPARISON STUDY: 04/06/2025 FINDINGS: Heart size and pulmonary vasculature are normal. No consolidation or pleural effusion. No p neumothorax. Stable mild scoliosis. No displaced rib fracture seen. Bone lesion at the left fourth ri b is better seen on the prior CT of 04/03/2025 IMPRESSION: No acute findings seen. ACT 112: Negative or not required by law. Electronically signed by: Guillermo Bailey M.D. 04/10/2025 3:12 PM
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
[2025-04-13 03:02] VITALS: RESP 16
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
[2025-04-13] MEDS: OXYMETAZOLINE 0.05% 30 ML BTL ONE (11:56)
[2025-04-13] MEDS: [UNRECOGNIZED DRUG - REMARK] SCH (11:56)
[2025-04-13 16:04] VITALS: TEMP 97.5; O2SAT 91
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
[2025-04-13 17:57] VITALS: BP 100/66; PULSE 76
--- NOTE | 2025-04-15 13:02 | Communication Note ---
Date of Service: April 15, 2025 Received message from Hospitalist team pt was having difficulty getting her TD fentanyl filled by pharmacy. I called pt's home and spoke with her spouse. He shared that the patient has told him that she called her doctor it is being managed. He said that her patch is due to be replaced tomorrow and he plans to citrus picker script today. Palliative care office contact information shared and reinforced pt's follow up appt with Dr Shah on 04/20 at 10am.
[2025-04-16] MEDS ORDERED: [UNRECOGNIZED DRUG - REMARK] SCH (10:00)
== END 2025-04-13 18:33 | disposition home or self-care (01) | DRG 167 ==
LOC: ED 12:44 → SUATTDRO 16:18 → 2N 16:18